=== PATIENT | male | born 1985 | race African-American/Black ===

== ENCOUNTER 2018-01-11 05:58 | Emergency (ER) | payer BC, OTHER ==
--- NOTE | 2018-01-11 07:21 | ER Document Report ---
ED General - General Chief Complaint: Chest Pain Stated Complaint: CHEST PAIN Time Seen by Provider: 01/11/18 07:13 Mode of Arrival: Ambulatory Information source: Patient Notes: Patient presents emergency department with complaints of sharp chest pain that comes and goes for a while. Reports he was on the way to work this morning when he felt a sharp chest pain midsternum. He denied nausea fever vomiting diarrhea. Denies diaphoretic. Pain did not radiate. Reports his mom has a history of CHF with a stent when she was in her 50s. He is unsure of his father. Reports no other family history. He reports history of high blood pressure. Patient is overweight smokes cigars every now and then and does drink alcohol, denies use of cocaine/iv drugs/marijuana. Patient reports he has the same symptoms in the past when he has taken [place] and sat up straight and the symptoms have gone away. TRAVEL OUTSIDE OF THE [place] IN LAST 30 DAYS: No - HPI Onset: Just prior to arrival Onset/Duration: Sudden Quality of pain: Sharp Pain Level: 5 Associated symptoms: None Exacerbated by: Denies Relieved by: Denies Similar symptoms previously: Yes Recently seen / treated by doctor: No - Related Data Allergies/Adverse Reactions: No Known Allergies Allergy (Unverified 02/29/16 03:23) Past Medical History - General Information source: Patient - Social History Smoking Status: Current Some Day Smoker - cigars Cigarette use (# per day): No Frequency of alcohol use: Occasional Drug Abuse: None Occupation: [employer] Lives with: Family Family History: CAD, DM Patient has suicidal ideation: No Patient has homicidal ideation: No - Past Medical History Cardiac Medical History: Reports: Hx Hypertension Renal/ Medical History: Denies: Hx Peritoneal Dialysis Surgical Hx: Negative Review of Systems - Review of Systems Notes: Review HPI for review of systems., All other systems negative Physical Exam - Vital signs Vitals: Temp Pulse Resp BP Pulse Ox 98.5 F 97 14 142/94 H 95 01/11/18 06:19 01/11/18 06:19 01/11/18 06:19 01/11/18 06:19 01/11/18 06:19 - Notes Notes: PHYSICAL EXAMINATION: GENERAL: Well-appearing and in no acute distress HEAD: Atraumatic, normocephalic. EYES: Pupils equal round , extraocular movements intact, sclera anicteric, conjunctiva are normal. ENT: nares patent, oropharynx clear without exudates. Moist mucous membranes. NECK: Normal range of motion, supple without lymphadenopathy LUNGS: CTAB and equal. No wheezes rales or rhonchi. HEART: Regular rate and rhythm without murmurs ABDOMEN: Soft, no tenderness. No guarding, no rebound EXTREMITIES: Normal range of motion, no pitting edema. No cyanosis. NEUROLOGICAL: Cranial nerves grossly intact. Normal sensory/motor exams. PSYCH: Normal mood, normal affect. SKIN: Warm, Dry, normal turgor, no rashes or lesions noted Course - Re-evaluation Re-evalutation: 01/11/18 09:08 gi cocktail did not help his cp, reports vague pressure now, will complete labs for further eval. EKG SR 01/11/18 10:26 01/11/18 10:33 CK 489, Pt denies recent exercise/trauma. Reports he is feeling better, cp gone. dr hurtado consulted, will repeat troponin/EKG, give PO fluids. 01/11/18 11:50 2nd EKG sinus rhythm 01/11/18 13:07 Heart score = 2 due to obesity/ cigar smoker, HTN, second EKG and second troponin negative. Will provide patient with information for follow-up. Patient was also on the importance instructed on the importance of getting blood pressure under control quit smoking cigars change in diet and increase exercise. He verbalized understanding tall instructions. Patient was seen today for chest pain. After review of EKG, laboratory findings, and radiologic findings there is no signs of acute myocardial infarction, congestive heart failure, pneumonia, pneumothorax ,pulmonary embolism, or aortic dissection. Also considered were costochondritis, muscle strain/ over use syndrome. At this time until the patient is stable for discharge home. Patient is recommended to follow up with his primary care physician in the next 2-3 days or return to emergency department for worsening symptoms or failure to improve the next 18-24 hours. - Vital Signs Vital signs: Temp Pulse Resp BP Pulse Ox 98 F 97 16 122/81 97 01/11/18 13:00 01/11/18 06:19 01/11/18 13:01 01/11/18 13:00 01/11/18 13:01 - Laboratory Result Diagrams: 01/11/18 09:13 01/11/18 09:13 Laboratory results interpreted by me: 01/11/18 09:13 Creatine Kinase 489 H - Diagnostic Test Radiology reviewed: Image reviewed, Reports reviewed - CXRAY NEGATIVE - EKG Interpretation by Me EKG shows normal: Sinus rhythm Rate: Normal Rhythm: NSR When compared to previous EKG there are: No significant change Discharge - Discharge Clinical Impression: Elevated blood pressure reading Chest pain Qualifiers: Chest pain type: unspecified Qualified Code(s): R07.9 - Chest pain, unspecified Condition: Stable Disposition: HOME, SELF-CARE Instructions: Aspirin (Cardiac) ([facility]), Chest Pain of Unclear Cause ([facility]), Reflux Disease (GERD) ([facility]) Additional Instructions: *You have been evaluated for chest lety *Follow up with a primary care provider within 3 days *Follow up with a automotive fleet supervisor for full cardiac evaluation *Return to ED for worsening condition, changes, needs, return of chest pain, concerns Forms: Elevated Blood Pressure, Smoking Cessation Education, Return to Work Referrals: ENRICO SANCHEZ MD [ACTIVE STAFF] - Follow up in 3-5 days
[2018-01-11] MEDS ORDERED: ASPIRIN 81 MG TABLET, CHEWABLE PO ONE (07:22)
--- NOTE | 2018-01-11 07:23 | RADIOLOGY REPORT (SQ) ---
EXAM DESCRIPTION: CHEST PA/LAT CLINICAL HISTORY: chest pain COMPARISON: None. FINDINGS: Frontal and lateral views of the chest. The cardiomediastinal silhouette has normal size and contour. No consolidation, pneumothorax, or pleural effusion. No displaced rib fractures identified. Upper abdominal soft tissues are unremarkable. Leads overlie the chest. IMPRESSION: 1. No acute pulmonary process identified.
[2018-01-11] MEDS ORDERED: MAG HYDROX/AL HYDROX/SIMETH SUSP 30 ML UDCUP PO ONE (08:16)
[2018-01-11] MEDS ORDERED: METOCLOPRAMIDE HCL ORAL SOLN 10 MG/10 ML UDCUP PO ONE (08:16)
[2018-01-11] MEDS ORDERED: LIDOCAINE 2% VISCOUS SOLN 20 ML UDCUP PO ONE (08:16)
[2018-01-11 09:42] LABS: ABSOLUTE LYMPHOCYTES (AUTO) 1.9 10^3/uL (0.5-4.7); ABSOLUTE MONOCYTES (AUTO) 0.5 10^3/uL (0.1-1.4); ABSOLUTE NEUT (AUTO) 3.3 10^3/uL (1.7-8.2); BASOPHILS % (AUTO) 0.5 % (0-2); EOSINOPHILS % (AUTO) 0.8 % (0-6); HEMATOCRIT 43.1 % (37.9-51.0); HEMOGLOBIN 15.5 g/dL (13.5-17.0); LYMPHOCYTES % (AUTO) 32.8 % (13-45); MEAN CORPUSCULAR HEMOGLOBIN 31.3 pg (27.0-33.4); MEAN CORPUSCULAR HGB CONC 35.9 g/dL (32.0-36.0); MEAN CORPUSCULAR VOLUME 87 fl (80-97); MONOCYTES % (AUTO) 8.4 % (3-13); PLATELET COUNT 238 10^3/uL (150-450); RED BLOOD COUNT 4.94 10^6/uL (4.35-5.55); RED CELL DISTRIBUTION WIDTH 12.9 % (11.5-14.0); SEGMENTED NEUTROPHILS % (AUTO) 57.5 % (42-78); TOTAL CELLS COUNTED % (AUTO) 100 %; WHITE BLOOD COUNT 5.7 10^3/uL (4.0-10.5)
[2018-01-11 09:55] LABS: ALANINE AMINOTRANSFERASE 47 U/L (21-72); ALBUMIN 4.5 g/dL (3.5-5.0); ALKALINE PHOSPHATASE 40 U/L (38-126); ANION GAP 12 (5-19); ASPARTATE AMINO TRANSFERASE 31 U/L (17-59); BILIRUBIN,DIRECT 0.2 mg/dL (0.0-0.4); BILIRUBIN,TOTAL 0.9 mg/dL (0.2-1.3); BLOOD UREA NITROGEN 17 mg/dL (7-20); CALCIUM 9.9 mg/dL (8.4-10.2); CARBON DIOXIDE 24 mmol/L (22-30); CHLORIDE 105 mmol/L (98-107); CREATINE KINASE 489 U/L (55-170); GLUCOSE 88 mg/dL (75-110); POTASSIUM 4.5 mmol/L (3.6-5.0); SODIUM 141.1 mmol/L (137-145); TOTAL PROTEIN 6.6 g/dL (6.3-8.2)
[2018-01-11 10:08] LABS: TROPONIN I < 0.012 ng/mL
--- NOTE | 2018-01-11 10:19 | EKG REPORT ---
SEVERITY:- BORDERLINE ECG - SINUS RHYTHM PROBABLE LEFT ATRIAL ABNORMALITY : Confirmed by: Lydia Doty 11-Jan-2018 10:19:42
[2018-01-11 10:54] LABS: APPEARANCE,URINE CLEAR; BILIRUBIN,URINE NEGATIVE (NEGATIVE); COLOR,URINE YELLOW; GLUCOSE, URINE NEGATIVE (NEGATIVE); KETONES,URINE NEGATIVE (NEGATIVE); LEUKOCYTE ESTERASE,URINE NEGATIVE (NEGATIVE); NITRITE,URINE NEGATIVE (NEGATIVE); PROTEIN,URINE NEGATIVE (NEGATIVE); URINE SPECIFIC GRAVITY 1.023; UROBILINOGEN,URINE NEGATIVE mg/dL (<2.0)
[2018-01-11 11:13] LABS: URINE AMPHETAMINES SCREEN NEGATIVE; URINE BARBITURATES SCREEN NEGATIVE; URINE BENZODIAZEPINES SCREEN NEGATIVE; URINE COCAINE SCREEN NEGATIVE; URINE MARIJUANA (THC) SCREEN NEGATIVE; URINE METHADONE SCREEN NEGATIVE; URINE PHENCYCLIDINE SCREEN NEGATIVE
[2018-01-11 13:30] VITALS: BP 122/81
--- NOTE | 2018-01-12 09:08 | EKG REPORT ---
SEVERITY:- BORDERLINE ECG - SINUS RHYTHM BORDERLINE T ABNORMALITIES, INFERIOR LEADS : Confirmed by: Lydia Doty 12-Jan-2018 09:08:13
== END 2018-01-11 13:30 | disposition home or self-care (01) ==
LOC: ER 05:58
DX: R07.9 Chest pain, unspecified (principal); R03.0 Elevated blood-pressure reading, without diagnosis of hypertension; I50.9 Heart failure, unspecified; F17.200 Nicotine dependence, unspecified, uncomplicated
CPT/HCPCS: 93005; 99285; 36415; 82553; 82550; 85025; 80053; 81001; 84484; 80307; 71046; 93010; J3490

== ENCOUNTER 2018-03-18 05:21 | Emergency (ER) | payer BC ==
--- NOTE | 2018-03-18 05:36 | ER Document Report ---
HPI - HPI Patient complains to provider of: Low back pain Onset: Other - Saturday Onset/Duration: Gradual Pain Level: 4 Context: 32-year-old morbidly obese male that works 7 days on 2 days off complaining of lumbar low back pain without radiculopathy since Saturday, he drives a forklift. No injury that he is aware of. He has had back pain once before in which she had sciatica but he does not have that now. No saddle anesthesia. No fever or chills. No IV drug use. Pain is worse with movement and standing. Associated Symptoms: None Exacerbated by: Standing, Movement Relieved by: Denies Similar symptoms previously: Yes Recently seen / treated by doctor: No - ROS ROS below otherwise negative: Yes Systems Reviewed and Negative: Yes All other systems reviewed and negative Past Medical History - General Information source: Patient - Social History Smoking Status: Current Some Day Smoker Frequency of alcohol use: None Drug Abuse: None Lives with: Spouse/Significant other Family History: CAD, DM - Past Medical History Cardiac Medical History: Reports: Hx Hypertension Renal/ Medical History: Denies: Hx Peritoneal Dialysis Surgical Hx: Negative Vertical Provider Document - CONSTITUTIONAL Agree With Documented VS: Yes Exam Limitations: No Limitations - INFECTION CONTROL TRAVEL OUTSIDE OF THE [place] IN LAST 30 DAYS: No - HEENT HEENT: Normocephalic. negative: Pharyngeal Tenderness - NECK Neck: Supple - RESPIRATORY Respiratory: Breath Sounds Normal, No Respiratory Distress - CARDIOVASCULAR Cardiovascular: Regular Rate, Regular Rhythm - GI/ABDOMEN Gastrointestinal: Abdomen Soft, Abdomen Non-Tender - BACK Back: Normal Inspection - tender midline l spine - MUSCULOSKELETAL/EXTREMETIES Musculoskeletal/Extremeties: BRENDA SINCLAIR - NEURO Motor/Sensory: No Motor Deficit, No Sensory Deficit Deep Tendon Reflexes: 2+ - cezar ankle and patellar - DERM Integumentary: Warm, Dry, No Rash Course - Re-evaluation Re-evalutation: 03/18/18 06:34 Prelim x-ray is negative, pt OK leaving without final report, will call him if any change on on license of [facility] report. 03/18/18 0710 final xrya is negative. - Vital Signs Vital signs: Temp Pulse Resp BP Pulse Ox 97.9 F 75 18 144/98 H 98 03/18/18 05:21 03/18/18 05:21 03/18/18 05:21 03/18/18 05:21 03/18/18 05:21 Discharge - Discharge Clinical Impression: Lumbar back pain Condition: Good Disposition: HOME, SELF-CARE Instructions: Acetaminophen, Ibuprofen (General) ([facility]), Low Back Pain ([facility]), Muscle Relaxers ([facility]), Warm Packs ([facility]) Additional Instructions: see orthopedic doctor if the back pain persists Muscle relaxers 3 times a day as needed Motrin 3 times a day Tylenol up to 4000 mg a day Warm compress Return to the emergency room if the symptoms worsen Prescriptions: Ibuprofen [Motrin 800 mg Tablet] 800 mg PO Q8HP PRN #30 tablet PRN Reason: Cyclobenzaprine HCl [Flexeril 10 Mg Tablet] 10 mg PO TIDP PRN #20 tablet PRN Reason: Forms: Return to Work Referrals: REJI MOULTON DO [ACTIVE STAFF] - Follow up as needed
[2018-03-18] MEDS ORDERED: IBUPROFEN 800 MG TABLET PO ONE (05:43)
[2018-03-18] MEDS ORDERED: ACETAMINOPHEN 325 MG TABLET PO ONE (05:43)
--- NOTE | 2018-03-18 06:41 | RADIOLOGY REPORT (SQ) ---
EXAM DESCRIPTION: L SPINE WHOLE CLINICAL HISTORY: l spine pain COMPARISON: None. FINDINGS: 4 views of the lumbar spine. 5 nonrib-bearing lumbar vertebrae. Pedicles identified throughout. No abnormalities of visualized sacrum or pelvic bones. No evidence of spondylolisthesis listhesis or spondylolysis. Vertebral body height and intervertebral disc height preserved. No cortical step-offs. Abdominal soft tissues are unremarkable. IMPRESSION: 1. No acute abnormality of the lumbar spine by plain film criteria.
[2018-03-18 06:51] VITALS: BP 126/74
== END 2018-03-18 06:45 | disposition home or self-care (01) ==
LOC: ER 05:21
DX: M54.5 Low back pain (principal); F17.200 Nicotine dependence, unspecified, uncomplicated; I10 Essential (primary) hypertension
CPT/HCPCS: 72110; 99283

== ENCOUNTER 2018-06-11 03:52 | Emergency (ER) | payer BC ==
--- NOTE | 2018-06-11 06:14 | ER Document Report ---
ED Medical Screen (RME) - General Chief Complaint: Thumb Injury Stated Complaint: THUMB INJURY Time Seen by Provider: 06/11/18 05:49 Mode of Arrival: Ambulatory Information source: Patient Notes: Patient with complaint of left thumb pain for the last 2 weeks. Patient reports that he does not recall injuring at the thumb. Patient reports limited range of motion and reports a throbbing pain that is intermittent. Patient denies any history of gout. Exam: Cap refill less than 3 seconds, limited range of motion to left thumb, mild swelling noted. I have greeted and performed a rapid initial assessment of this patient. A comprehensive ED assessment and evaluation of the patient, analysis of test results and completion of the medical decision making process will be conducted by additional ED providers. Dictation of this chart was performed using voice recognition software; therefore, there may be some unintended grammatical errors. TRAVEL OUTSIDE OF THE [place] IN LAST 30 DAYS: No - Related Data Allergies/Adverse Reactions: No Known Allergies Allergy (Unverified 02/29/16 03:23) Past Medical History - Past Medical History Cardiac Medical History: Reports: Hx Hypertension Renal/ Medical History: Denies: Hx Peritoneal Dialysis Physical Exam - Vital signs Vitals: Temp Pulse Resp BP Pulse Ox 97.9 F 91 20 137/93 H 97 06/11/18 03:57 06/11/18 03:57 06/11/18 03:57 06/11/18 03:57 06/11/18 03:57 Course - Vital Signs Vital signs: Temp Pulse Resp BP Pulse Ox 97.9 F 91 20 137/93 H 97 06/11/18 03:57 06/11/18 03:57 06/11/18 03:57 06/11/18 03:57 06/11/18 03:57 Doctor's Discharge - Discharge Referrals: LOCAL,NO [Primary Care Provider] - Follow up as needed
--- NOTE | 2018-06-11 06:26 | RADIOLOGY REPORT (SQ) ---
EXAM DESCRIPTION: XR HAND 3 OR MORE VIEWS COMPLETED DATE/TME: 06/11/2018 05:49 CLINICAL HISTORY: 32 years, Male, left thumb pain COMPARISON: None. FINDINGS: 3 views of the left hand. No acute fracture or dislocation. Normal osseous mineralization. No radiopaque foreign bodies identified. IMPRESSION: No acute fracture or dislocation. 2010 [employer]- All Rights Reserved
--- NOTE | 2018-06-11 08:00 | ER Document Report ---
ED Hand/Wrist Injury - General Chief Complaint: Thumb Injury Stated Complaint: THUMB INJURY Time Seen by Provider: 06/11/18 05:49 Mode of Arrival: Ambulatory Information source: Patient Notes: Patient is a 32-year-old male who presents to the ER today for pain to the base of the left thumb times approximately 2 weeks. Patient denies any injury. 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 Patient denies any redness, swelling, numbness or tingling. Patient states that it is difficult for him to bend the thumb because of the pain. He denies any history of gout. TRAVEL OUTSIDE OF THE [place] IN LAST 30 DAYS: No - Related Data Allergies/Adverse Reactions: No Known Allergies Allergy (Unverified 02/29/16 03:23) Past Medical History - General Information source: Patient - Social History Smoking Status: Current Some Day Smoker Frequency of alcohol use: Occasional Family History: CAD, DM Patient has suicidal ideation: No Patient has homicidal ideation: No - Past Medical History Cardiac Medical History: Reports: Hx Hypertension Renal/ Medical History: Denies: Hx Peritoneal Dialysis Review of Systems - Review of Systems Constitutional: No symptoms reported EENT: No symptoms reported Cardiovascular: No symptoms reported Respiratory: No symptoms reported Gastrointestinal: No symptoms reported Genitourinary: No symptoms reported Male Genitourinary: No symptoms reported Musculoskeletal: See HPI Skin: No symptoms reported Hematologic/Lymphatic: No symptoms reported Neurological/Psychological: No symptoms reported Physical Exam - Vital signs Vitals: Temp Pulse Resp BP Pulse Ox 97.9 F 91 20 137/93 H 97 06/11/18 03:57 06/11/18 03:57 06/11/18 03:57 06/11/18 03:57 06/11/18 03:57 - Notes Notes: PHYSICAL EXAMINATION: GENERAL: Well-appearing and in no acute distress. HEAD: Atraumatic, normocephalic. EYES: Pupils equal round and reactive to light, extraocular movements intact, sclera anicteric, conjunctiva are normal. NECK: Normal range of motion, supple without lymphadenopathy LUNGS: CTAB and equal. No wheezes rales or rhonchi. HEART: Regular rate and rhythm without murmurs EXTREMITIES: Decreased range of motion of the left thumb secondary to pain, decreased active and normal passive bending at the PIP joint, however painful and there is a clicking of the joint, tender to the thenar eminence of the left hand at the base of the thumb, no pitting edema. No cyanosis. NEUROLOGICAL: Cranial nerves grossly intact. Normal sensory/motor exams. PSYCH: Normal mood, normal affect. SKIN: Warm, Dry, normal turgor, no rashes or lesions noted Course - Re-evaluation Re-evalutation: 06/11/18 07:56 X-ray negative for any acute pathology. I will give him Dr. Moulton's information, orthopedic surgeon, hand specialist to call today and make an appointment with. Patient placed in finger splint here. - Vital Signs Vital signs: Temp Pulse Resp BP Pulse Ox 97.9 F 91 20 137/93 H 97 06/11/18 03:57 06/11/18 03:57 06/11/18 03:57 06/11/18 03:57 06/11/18 03:57 Discharge - Discharge Clinical Impression: Trigger finger of thumb Qualifiers: Laterality: left Qualified Code(s): M65.312 - Trigger thumb, left thumb Condition: Stable Disposition: HOME, SELF-CARE Additional Instructions: Return immediately for any new or worsening symptoms. Follow up with primary care provider, call tomorrow to make followup appointment. Prescriptions: Methylprednisolone [Medrol Dosepack (4 mg/Tab) 21 Tab/Dosepak] 4 mg PO ASDIR PRN #21 tab.ds.pk PRN Reason: Forms: Return to Work Referrals: MAGDALENA,NO [Primary Care Provider] - Follow up as needed REJI MOULTON DO [ACTIVE STAFF] - Follow up as needed
[2018-06-11] MEDS ORDERED: HYDROCODONE/ACETAMINOPHEN 5-325 MG TABLET PO ONE (08:02)
[2018-06-11 08:15] VITALS: BP 135/88
== END 2018-06-11 08:15 | disposition home or self-care (01) ==
LOC: ER 03:52
DX: M65.312 Trigger thumb, left thumb (principal); F17.200 Nicotine dependence, unspecified, uncomplicated
CPT/HCPCS: 99283

== ENCOUNTER 2019-07-20 15:09 | Emergency (ER) | payer BC, OTHER ==
[2019-07-20 15:16] VITALS: BP 133/91
--- NOTE | 2019-07-20 15:52 | ER Document Report ---
ED Medical Screen (RME) - General Chief Complaint: Chest Pain Stated Complaint: CHEST PAIN Primary Care Provider: PRISCILLA NICHOLS [Primary Care Provider] - Follow up as needed Mode of Arrival: Ambulatory Information source: Patient Notes: Patient is a 33-year-old male presents emergency department chief complaint of midsternal chest pain that has been going on for approximately 2 days. Patient reports it feels like a pressure in the middle of the chest. He reports that he tried brushing it off and not worrying about it however today when he got home from work he had an episode of diaphoresis, nausea and shortness of breath associated with the chest pain. He denies any cardiac history. He does state that a few times he has had elevated blood pressure but is never formally been diagnosed with hypertension. He denies any patient counselled regarding cessation for 4 minutes, or use of cocaine. Exam: Patient appears mildly anxious. Heart sounds S1-S2 present with no ectopy noted. No tenderness with palpation on the chest wall. *Of note patient did not have an EKG done at the time of my evaluation so one has been ordered and he will be sent immediately for this. I have greeted and performed a rapid initial assessment of this patient. A comprehensive ED assessment and evaluation of the patient, analysis of test results and completion of the medical decision making process will be conducted by additional ED providers. I have specifically instructed the patient or family members with the patient to immediately return to any nursing staff should anything change in the patient's condition or with their chief complaint. This medical record was dictated with voice recognizing software. There may be grammatical, syntax errors that are unintended. TRAVEL OUTSIDE OF THE [place] IN LAST 30 DAYS: No - Related Data Allergies/Adverse Reactions: No Known Allergies Allergy (Unverified 02/29/16 03:23) Past Medical History - Past Medical History Cardiac Medical History: Reports: Hx Hypertension Renal/ Medical History: Denies: Hx Peritoneal Dialysis Physical Exam - Vital signs Vitals: Temp Pulse Resp BP Pulse Ox 97.7 F 96 18 133/91 H 97 07/20/19 15:15 07/20/19 15:15 07/20/19 15:15 07/20/19 15:15 07/20/19 15:15 Course - Vital Signs Vital signs: Temp Pulse Resp BP Pulse Ox 97.7 F 96 18 133/91 H 97 07/20/19 15:15 07/20/19 15:15 07/20/19 15:15 07/20/19 15:15 07/20/19 15:15 Doctor's Discharge - Discharge Referrals: LOCAL,NO [Primary Care Provider] - Follow up as needed
--- NOTE | 2019-07-20 16:15 | RADIOLOGY REPORT (SQ) ---
EXAM DESCRIPTION: CHEST 2 VIEWS COMPLETED DATE/TIME: 07/20/2019 4:01 pm REASON FOR STUDY: chest pain COMPARISON: 01/11/2018 EXAM PARAMETERS: NUMBER OF VIEWS: two views TECHNIQUE: Digital Frontal and Lateral radiographic views of the chest acquired. RADIATION DOSE: NA LIMITATIONS: none FINDINGS: LUNGS AND PLEURA: No opacities, masses or pneumothorax. No pleural effusion. MEDIASTINUM AND HILAR STRUCTURES: No masses or contour abnormalities. HEART AND VASCULAR STRUCTURES: Heart normal size. No evidence for failure. BONES: No acute findings. HARDWARE: None in the chest. OTHER: No other significant finding. IMPRESSION: NO ACUTE RADIOGRAPHIC FINDING IN THE CHEST. TECHNICAL DOCUMENTATION: JOB ID: [id number] [employer]- All Rights Reserved Reading location - IP/workstation name: [email or web address]
[2019-07-20 16:52] LABS: ABSOLUTE LYMPHOCYTES (AUTO) 1.3 10^3/uL (0.5-4.7); ABSOLUTE MONOCYTES (AUTO) 1.1 10^3/uL (0.1-1.4); ABSOLUTE NEUT (AUTO) 11.4 10^3/uL (1.7-8.2); BASOPHILS % (AUTO) 0.2 % (0-2); EOSINOPHILS % (AUTO) 0.1 % (0-6); HEMATOCRIT 50.3 % (37.9-51.0); HEMOGLOBIN 17.2 g/dL (13.5-17.0); LYMPHOCYTES % (AUTO) 9.5 % (13-45); MEAN CORPUSCULAR HEMOGLOBIN 30.5 pg (27.0-33.4); MEAN CORPUSCULAR HGB CONC 34.3 g/dL (32.0-36.0); MEAN CORPUSCULAR VOLUME 89 fl (80-97); MONOCYTES % (AUTO) 7.8 % (3-13); PLATELET COUNT 296 10^3/uL (150-450); RED BLOOD COUNT 5.65 10^6/uL (4.35-5.55); RED CELL DISTRIBUTION WIDTH 12.8 % (11.5-14.0); SEGMENTED NEUTROPHILS % (AUTO) 82.4 % (42-78); TOTAL CELLS COUNTED % (AUTO) 100 %; WHITE BLOOD COUNT 13.9 10^3/uL (4.0-10.5)
[2019-07-20 17:16] LABS: ALBUMIN 5.6 g/dL (3.5-5.0); ALKALINE PHOSPHATASE 44 U/L (38-126); ANION GAP 13 (5-19); ASPARTATE AMINO TRANSFERASE 36 U/L (17-59); BILIRUBIN,DIRECT 0.4 mg/dL (0.0-0.4); BLOOD UREA NITROGEN 28 mg/dL (7-20); CALCIUM 10.6 mg/dL (8.4-10.2); CARBON DIOXIDE 28 mmol/L (22-30); CHLORIDE 98 mmol/L (98-107); CREATINE KINASE 283 U/L (55-170); GLUCOSE 90 mg/dL (75-110); POTASSIUM 5.3 mmol/L (3.6-5.0); TOTAL PROTEIN 8.9 g/dL (6.3-8.2)
[2019-07-20] MEDS ORDERED: LIDOCAINE 2% VISCOUS SOLN 20 ML UDCUP PO ONE (17:20)
[2019-07-20] MEDS ORDERED: METOCLOPRAMIDE HCL ORAL SOLN 10 MG/10 ML UDCUP PO ONE (17:20)
[2019-07-20] MEDS ORDERED: MAG HYDROX/AL HYDROX/SIMETH SUSP 30 ML UDCUP PO ONE (17:20)
[2019-07-20] MEDS ORDERED: MORPHINE SULFATE 10 MG/ML INJ IV ONE (17:22)
[2019-07-20] MEDS ORDERED: NORMAL SALINE 1000 ML 1,000 ML IV ONE (17:30)
--- NOTE | 2019-07-20 20:42 | EKG REPORT ---
SEVERITY:- BORDERLINE ECG - SINUS RHYTHM PROBABLE LEFT ATRIAL ABNORMALITY : Confirmed by: Zina Tabares MD 20-Jul-2019 20:41:42
== END 2019-07-20 20:40 | disposition left against medical advice (07) ==
LOC: ER 15:09
DX: R07.9 Chest pain, unspecified (principal); I10 Essential (primary) hypertension
CPT/HCPCS: 93005; 36415; 82550; 85025; 80053; 84484; 71046; 93010; J2270; J7030; 99281

== ENCOUNTER 2019-08-20 01:27 | Emergency (ER) | payer OTHER ==
--- NOTE | 2019-08-20 02:17 | ER Document Report ---
ED Neck/Back Problem - General Chief Complaint: Back Pain Stated Complaint: BACK PAIN Time Seen by Provider: 08/20/19 02:17 Mode of Arrival: Ambulatory Information source: Patient Notes: HISTORY OF PRESENT ILLNESS: Patient is a 34-year-old male with a past medical history of intermittent back pain who presents with acute back pain for the past several days. Mechanism of injury: None Location: Lower back Onset: Last week Provocation: Movement, twisting, bending over Quality: Aching Radiation: "Down both my legs" Severity: Moderate at worst, currently mild to moderate Timing: None Numbness/Tingling: None REVIEW OF SYSTEMS: CONSTITUTIONAL : Denies fever or chills, no sweats. Denies recent illness. EENT: Denies eye, ear, throat, or mouth pain or symptoms. Denies nasal or sinus congestion. CARDIOVASCULAR: Denies chest pain. RESPIRATORY: Denies cough, cold, or chest congestion. Denies shortness of breath, difficulty breathing, or wheezing. GASTROINTESTINAL: Denies abdominal pain. Denies nausea, vomiting, or diarrhea. Denies constipation. GENITOURINARY: Denies difficulty urinating, painful urination, burning, frequency, or blood in urine. MUSCULOSKELETAL: Positive for low back pain. SKIN: Denies rash or skin lesions. HEMATOLOGIC : Denies easy bruising or bleeding. LYMPHATIC: Denies swollen, enlarged glands. NEUROLOGICAL: Denies weakness or paralysis or loss of use of either side. Denies problems with gait or speech. Denies sensory or motor loss. PSYCHIATRIC: Denies anxiety or stress or depression. All other systems reviewed and negative. PHYSICAL EXAMINATION: GENERAL: Well-appearing, well-nourished and in no acute distress. HEAD: Atraumatic, normocephalic. No scalp deformity, depression, or crepitance. EYES: Pupils are 3 mm and equal/round/reactive to light, extraocular movements intact, sclera anicteric, conjunctiva are normal. ENT: Nares patent bilaterally, oropharynx clear without exudates or palatal petechia. Moist mucous membranes. No tonsil hypertrophy. NECK: Normal range of motion, supple without lymphadenopathy. LUNGS: Breath sounds present, equal, and clear to auscultation bilaterally. No wheezes, rales, or rhonchi. HEART: Regular rate and rhythm without murmurs, rubs, or gallops. 2+ peripheral pulses. Normal capillary refill. ABDOMEN: Soft, nontender, nondistended. Normoactive bowel sounds. No guarding, no rebound. No masses appreciated. BACK: Moderate tenderness to the paraspinal musculature of the lower lumbar spine, negative straight leg raise. Normal contour, no midline tenderness. Rectal exam deferred. GENITAL/PELVC: Deferred. EXTREMITIES: Normal range of motion, no obvious deformity. No pitting or edema. No cyanosis and normal capillary refill <2 seconds. NEUROLOGICAL: No focal neurological deficits. Moves all extremities spontaneously and on command. PSYCH: Normal mood, normal affect. No suicidal thoughts/ideations. No homicidal thoughts/ideations. No hallucinations. SKIN: Warm, dry, normal turgor, no rashes or lesions noted. ASSESSMENT AND PLAN: This patient is a 34-year-old male who presents with back pain consistent with likely early sciatica versus lumbar strain. 1. Will give intramuscular Toradol and reassess. 2. Will charge if improved. TRAVEL OUTSIDE OF THE [place] IN LAST 30 DAYS: No - HPI Patient complains to provider of: Pain Onset: Last week Onset: Gradual Timing: Waxing and waning Quality of pain: Achy, Cramping Severity: Moderate Pain Level: 2 Recent injury: No Associated symptoms: None Exacerbated by: Movement of trunk Relieved by: Nothing Similar symptoms previously: Yes Recently seen / treated by doctor: No - Related Data Allergies/Adverse Reactions: No Known Allergies Allergy (Unverified 02/29/16 03:23) Past Medical History - General Information source: Patient - Social History Smoking Status: Unknown if Ever Smoked Frequency of alcohol use: None Drug Abuse: None Lives with: Family Family History: CAD, DM Patient has suicidal ideation: No Patient has homicidal ideation: No - Past Medical History Cardiac Medical History: Reports: Hx Hypertension Pulmonary Medical History: Reports: None EENT Medical History: Reports: None Neurological Medical History: Reports: None Endocrine Medical History: Reports: None Renal/ Medical History: Reports: None. Denies: Hx Peritoneal Dialysis Malignancy Medical History: Reports None GI Medical History: Reports: None Musculoskeletal Medical History: Reports None Skin Medical History: Reports None Psychiatric Medical History: Reports: None Traumatic Medical History: Reports: None Infectious Medical History: Reports: None Surgical Hx: Negative Past Surgical History: Reports: None - Immunizations Immunizations up to date: Yes Hx Diphtheria, Pertussis, Tetanus Vaccination: Yes Review of Systems - Review of Systems Constitutional: No symptoms reported EENT: No symptoms reported Cardiovascular: No symptoms reported Respiratory: No symptoms reported Gastrointestinal: No symptoms reported Genitourinary: No symptoms reported Male Genitourinary: No symptoms reported Musculoskeletal: See HPI, Back pain Skin: No symptoms reported Hematologic/Lymphatic: No symptoms reported Neurological/Psychological: No symptoms reported -: Yes All other systems reviewed and negative Physical Exam - Vital signs Vitals: Temp Pulse Resp BP Pulse Ox 97.6 F 79 20 145/88 H 95 08/20/19 01:31 08/20/19 01:31 08/20/19 01:31 08/20/19 01:31 08/20/19 01:31 Interpretation: Normal Course - Vital Signs Vital signs: Temp Pulse Resp BP Pulse Ox 97.6 F 76 16 168/84 H 98 08/20/19 03:04 08/20/19 03:04 08/20/19 03:04 08/20/19 03:04 08/20/19 03:04 Discharge - Discharge Clinical Impression: Back pain with sciatica Condition: Good Disposition: HOME, SELF-CARE Instructions: Family Physicians / Practices, Low Back Pain ([facility]) Additional Instructions: You have been evaluated in the Emergency Department for acute back pain. While here, you were given pain medication and it is now safe to be discharged home. Please follow-up with your primary physician as instructed in one week to be rechecked. Return to the Emergency Department if you experience worsening pain, difficulty walking, incontinence, or any other concerning symptoms. Prescriptions: Baclofen [Baclofen 10 mg Tablet] 10 mg PO Q8HP PRN #30 tab PRN Reason: Muscle Spasms Diclofenac Sodium 75 mg PO BID #30 tablet.dr Forms: Return to Work Print Language: Georgian
[2019-08-20] MEDS ORDERED: KETOROLAC TROMETHAMINE 60 MG/2 ML SDV IM ONE (02:39)
[2019-08-20 03:05] VITALS: BP 168/84
== END 2019-08-20 03:00 | disposition home or self-care (01) ==
LOC: ER 01:27
DX: M54.40 Lumbago with sciatica, unspecified side (principal); I10 Essential (primary) hypertension
CPT/HCPCS: J1885